=== PATIENT | male | born 1955 | race Caucasian/White ===

== ENCOUNTER → 2017-06-25 | Outpatient (CLI) | payer BC, OTHER ==
[~2017-06-25] MED LIST: ASPIR 8181 MG PO; HYDROCODON-ACE1 EAC7 PO; LOPRESSOR PO; MEDROL DOSPAK21 TA1 PO; NORCO 5-325 TA1 EACH PO; ZANAFLEX2 M1 PO
--- NOTE | ~2017-06-25 | 24HR ---
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
== END ==
LOC: CV 07:50
DX: I47.1 Supraventricular tachycardia (principal)

== ENCOUNTER → 2018-06-26 | Outpatient (CLI) | payer BC ==
--- NOTE | ~2018-06-26 | 24HR ---
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 The study duration was 24 hours and the technical quality good. Predominant rhythm sinus rhythm at an average heart rate of 66 bpm, range 42-105 bpm. 2. Frequent atrial premature complexes, atrial couplets and triplets. One 9 beat yeny of atrial tachycardia. No sustained episodes of SVT. No atrial fibrillation or atrial flutter. Longest RR interval 1.8 seconds 3. Rare, isolated premature ventricular complexes. No ventricular couplets, triplets, or ventricular tachycardia 4. No symptoms reported. Electronically Signed On 07-01-2018 8:55:59 CDT by Chace Ingram [email or web address] <ELECTRONICALLY SIGNED> By: Chace Ingram MD, [facility] 07/01/18 0855 1143 1143 Chace Ingram MD, [facility] /EPI
== END ==
LOC: CV 10:53
DX: I47.1 Supraventricular tachycardia (principal)

== ENCOUNTER → 2020-07-05 | Outpatient (CLI) | payer OTHER, MEDICARE | LOC: SJCVC 13:00 | PROVIDERS: ATTEND Internal Medicine | DX: I82.401 Acute embolism and thrombosis of unspecified deep veins of right lower extremity (principal); I47.1 Supraventricular tachycardia; D68.51 Activated protein C resistance; E78.5 Hyperlipidemia, unspecified ==

== ENCOUNTER → 2021-07-18 | Outpatient (CLI) | payer OTHER, MEDICARE | LOC: SJCVC 12:48 | PROVIDERS: ATTEND Internal Medicine | DX: I47.1 Supraventricular tachycardia (principal); E78.5 Hyperlipidemia, unspecified; I82.401 Acute embolism and thrombosis of unspecified deep veins of right lower extremity; D68.51 Activated protein C resistance; Z79.899 Other long term (current) drug therapy ==